=== PATIENT | female | born 1990 | race Caucasian/White ===

== ENCOUNTER 2021-12-14 08:46 | Emergency (ER) | payer MEDICAID ==
[~2021-12-14] VITALS: Ht 152.4 cm; Wt 96.6 kg
[2021-12-14 08:52] VITALS: BP 127/90
--- NOTE | 2021-12-14 08:57 | NUR ---
PATIENT AMBULATED TO BED 10.
--- NOTE | 2021-12-14 09:10 | NUR ---
31 Y/O FEMALE C/O LEFT BREAST PAIN 5/10 BURNING NON-RADIATING PAIN X1WEEK. DENIES DISHCARGE OR BLOOD FROM BREAST. DENIES FEVER/CHILLS. DENIES N/V/D. LEFT BREAST WITHOUT ANY MASSESS NOTED UPON PALPATION. NO SWELLING OR HARDNESS NOTED ON LYMPH NODE PALPATION AT THIS TIME DENIES PMHX GRANDMOTHER HX BREAST CA NKA
--- NOTE | 2021-12-14 09:14 | NUR ---
Patient being evaluated by DR BANKS at bedside.
--- NOTE | 2021-12-14 09:25 | NUR ---
Female Enamel Finisher accompanied female patient for breast exam.
--- NOTE | 2021-12-14 09:45 | NUR ---
Patient discharged with v/s stable. Written and verbal after care instructions given and explained. Patient verbalized understanding. Ambulatory with steady gait. All questions addressed prior to discharge. Advised to follow up with PMD.
== END 2021-12-14 09:44 | disposition home or self-care (01) ==
LOC: MED 08:46
DX: L73.9 Follicular disorder, unspecified (principal); N64.4 Mastodynia
CPT/HCPCS: 99281